=== PATIENT | female | born 2000 | race Caucasian/White ===

== ENCOUNTER 2021-11-29 13:15 | Emergency (ER) | payer OTHER ==
[2021-11-29] MEDS ORDERED: ACETAMINOPHEN 325 MG TABLET (FP) PO ONE (13:19)
[2021-11-29 13:36] VITALS: BP 109/65; PULSE 81; TEMP 98.8; BMI 22.1
[2021-11-29] MEDS ORDERED: ACETAMINOPHEN 325 MG TABLET (FP) ONE (13:36)
== END 2021-11-29 14:36 | disposition home or self-care (01) ==
LOC: FER 13:15
DX: S63.92XA Sprain of unspecified part of left wrist and hand, initial encounter (principal); X50.9XXA Other and unspecified overexertion or strenuous movements or postures, initial encounter
CPT/HCPCS: 73110-TC-LT-FY; 73130-TC-LT-FY; 84703; 99284-25